=== PATIENT | female | born 1970 | race Caucasian/White ===

== ENCOUNTER 2017-05-22 05:59 | Day surgery (SDC) | payer OTHER ==
[2017-05-20 15:18] LABS: Albumin 3.3 g/dL (3.4-5.0); BUN/Creatinine Ratio 18.6; Calcium 9.2 mg/dL (8.5-10.1); Potassium 3.9 mmol/L (3.5-5.1)
[2017-05-20 15:20] LABS: Bilirubin, Total 0.1 mg/dL (0.2-1.0); Total Protein 7.8 g/dL (6.4-8.2)
[2017-05-20 15:26] LABS: Prothrombin Time 10.9 sec (9.37-12.3)
[2017-05-20 15:30] LABS: Basophils # (auto) 0.1 uL; Basophils % (auto) 0.7 % (0.0-2.0); Eosinophils # (auto) 0.2 uL; Eosinophils % (auto) 2.9 % (0.0-7.0); Hematocrit 44.5 % (36.0-46.0); Hemoglobin 14.6 g/dL (12.2-16.2); Lymphocytes # (auto) 1.7 uL; Lymphocytes % (auto) 19.4 % (10.0-50.0); Mean Corpuscular Hemoglobin 29.6 pg (28.0-32.0); Mean Corpuscular Hgb Conc. 32.9 g/dL (32.0-36.0); Mean Corpuscular Volume 90.1 fL (80.0-100.0); Monocytes # (auto) 0.7 uL; Monocytes % (auto) 7.7 % (0.0-12.0); Neutrophils # (auto) 5.9 uL; Neutrophils % (auto) 69.3 % (37.0-80.0); Nucleated Red Blood Cells % 0.1 %; Platelet Count (auto) 291 10^3/uL (140-450); Red Blood Cells 4.94 10^6/uL (4.0-5.20); Red Cell Distribution Width 15.5 % (11.8-14.3); White Blood Cell 8.5 10^3/uL (4.4-10.8)
[~2017-05-22] VITALS: Ht 167.6 cm; Wt 84.8 kg
[~2017-05-22 05:59] MED LIST: BUPRTAB3 PO; CELE200C PO; DIAZ10TA PO; FAM20T PO; GABA300C PO; LEVO25TA6 PO; OMEG1CAP31 PO; OMEP20CA74 PO; ZOLP10TA PO
[2017-05-22] MEDS ORDERED: ceFAZolin 1GM VL ONE (06:35)
[2017-05-22] MEDS ORDERED: LIDOCAINE W/ EPINEPHRINE 1 % INJ 30ML ONE ×2 (06:35→06:55)
[2017-05-22] MEDS ORDERED: BUPIVACAINE 0.5% P/F INJ 10 ML VIAL ONE (06:35)
[2017-05-22] MEDS ORDERED: BACITRACIN INJ 50000 UNIT VIAL ONE (06:35)
[2017-05-22] MEDS ORDERED: VANCOMYCIN HCL 1000 MG VL ONE (06:39)
[2017-05-22] MEDS ORDERED: CLINDAMYCIN 600MG IV 50 ML IV ONE (06:45)
[2017-05-22] MEDS ORDERED: BUPIVACAINE W/ EPINEPH 0.25% INJ 50ML MDV ONE (06:51)
[2017-05-22] MEDS ORDERED: MORPHINE SULFATE ONE (07:05)
[2017-05-22] MEDS ORDERED: MIDAZOLAM HCL 1MG/1ML-2 ML VIAL ONE ×2 (07:24→08:45)
[2017-05-22] MEDS ORDERED: PROPOFOL 10 MG/ML 20 ML IV ONE ×2 (07:31→08:45)
[2017-05-22] MEDS ORDERED: fentaNYL CITRATE 100 MCG/2 ML VL IV PRN (08:00)
[2017-05-22] MEDS ORDERED: ONDANSETRON HCL 4 MG/2 ML VIAL IV ONE (08:00)
[2017-05-22] MEDS ORDERED: ROCURONIUM 10MG/ML 10ML VIAL IV ONE (08:45)
[2017-05-22] MEDS ORDERED: METOCLOPRAMIDE HCL 5MG/ml INJ 2ml VIAL ONE (08:45)
[2017-05-22] MEDS ORDERED: NEOSTIGMINE 1 MG/ML INJ (10mg/10ML VIAL) ONE (08:45)
[2017-05-22] MEDS ORDERED: KETOROLAC TROMETH 60MG/2ML VIAL IM ONE (08:45)
[2017-05-22] MEDS ORDERED: fentaNYL CITRATE 100 MCG/2 ML VL ONE (08:45)
[2017-05-22] MEDS ORDERED: SODIUM CHLORIDE LOCK 20 ML ONE (08:45)
[2017-05-22] MEDS ORDERED: fentaNYL CITRATE 0 ML ONE (08:45)
[2017-05-22] MEDS ORDERED: MEPERIDINE HCL (50 MG/ML) 1 ML VIAL ONE (08:45)
[2017-05-22] MEDS ORDERED: GLYCOPYRROLATE 0.2 MG/ML 1ML VIAL ONE (08:45)
[2017-05-22 08:55] VITALS: BP 136/92
== END 2017-05-22 09:05 | disposition home or self-care (01) ==
LOC: SUR 05:59
PROVIDERS: ATTEND Anesthesiology Pain Medicine
DX: M96.1 Postlaminectomy syndrome, not elsewhere classified (principal); T85.615D Breakdown (mechanical) of other nervous system device, implant or graft, subsequent encounter; S24.109S Unspecified injury at unspecified level of thoracic spinal cord, sequela; D69.6 Thrombocytopenia, unspecified; J45.909 Unspecified asthma, uncomplicated; R56.9 Unspecified convulsions; G83.9 Paralytic syndrome, unspecified; Z88.0 Allergy status to penicillin; E66.01 Morbid (severe) obesity due to excess calories; Z68.35 Body mass index [BMI] 35.0-35.9, adult; K21.9 Gastro-esophageal reflux disease without esophagitis; F41.9 Anxiety disorder, unspecified; F32.9 Major depressive disorder, single episode, unspecified; Z90.49 Acquired absence of other specified parts of digestive tract
CPT/HCPCS: 36415; 62362; 62370; 80053; 84702; 85025; 85610; 85730; C1772; J1885; J2001; J2250; J2704; J2765; J3370; J3490; J0690

== ENCOUNTER 2023-12-23 06:05 | Day surgery (SDC) | payer OTHER, MEDICAID ==
[~2023-12-23] VITALS: Ht 167.6 cm; Wt 72.6 kg
[~2023-12-23 06:05] MED LIST changes: +BREX1TAB4 PO; +CLON0.1T PO; -DIAZ10TA PO; -FAM20T PO; +FAMO20TA10 PO; +KETO2SHA5 EX; +OMEG-28 PO; -OMEG1CAP31 PO; +QUET50TA PO
[2023-12-23] MEDS ORDERED: VANCOMYCIN HCL 1000 MG VL ONE (07:01)
[2023-12-23] MEDS ORDERED: CLINDAMYCIN 600MG IV 50 ML IV ONE (07:10)
[2023-12-23] MEDS ORDERED: fentaNYL CITRATE 100 MCG/2 ML VL ONE (07:14)
[2023-12-23] MEDS ORDERED: ePHEDrine SULFATE 50 MG/ML AMP ONE (07:40)
[2023-12-23] MEDS ORDERED: ONDANSETRON HCL 4 MG/2 ML VIAL ONE (07:44)
[2023-12-23] MEDS ORDERED: DexAMETHasone SOD PHOS 10MG/1ML VIAL INJ ONE (07:44)
[2023-12-23] MEDS ORDERED: PROPOFOL 10 MG/ML 20 ML IV ONE (07:46)
[2023-12-23] MEDS: LIDOCAINE W/ EPINEPHRINE 1% 20ML VIAL ONE (07:47)
[2023-12-23] MEDS: BUPIVACAINE W/ EPINEPH 0.5% INJ 50ML MDV IJ ONE (07:47)
[2023-12-23] MEDS: MORPHINE SULF PF 5 MG/10 ML VIAL ONE (07:47)
[2023-12-23 08:25] VITALS: TEMP 97.2
[2023-12-23] MEDS ORDERED: MEPERIDINE HCL (25 MG/ML) 1ML VIAL IV PRN (08:45)
[2023-12-23] MEDS ORDERED: ONDANSETRON HCL 4 MG/2 ML VIAL IV ONE (08:45)
[2023-12-23] MEDS ORDERED: HYDROmorphone HCL 2 MG/ML VL/or syr IV PRN (08:45)
[2023-12-23 08:55] VITALS: BP 117/57; PULSE 81; RESP 11; O2SAT 92
== END 2023-12-23 09:20 | disposition home or self-care (01) ==
LOC: SUR 06:05
PROVIDERS: ATTEND Anesthesiology Pain Medicine
DX: Z45.49 Encounter for adjustment and management of other implanted nervous system device (principal); M96.1 Postlaminectomy syndrome, not elsewhere classified; G89.4 Chronic pain syndrome; I10 Essential (primary) hypertension; E11.9 Type 2 diabetes mellitus without complications; J45.909 Unspecified asthma, uncomplicated; E07.9 Disorder of thyroid, unspecified; E03.9 Hypothyroidism, unspecified; K44.9 Diaphragmatic hernia without obstruction or gangrene; F41.8 Other specified anxiety disorders; F43.10 Post-traumatic stress disorder, unspecified; E66.9 Obesity, unspecified; Z68.25 Body mass index [BMI] 25.0-25.9, adult; Z79.890 Hormone replacement therapy; Z79.899 Other long term (current) drug therapy; Z86.2 Personal history of diseases of the blood and blood-forming organs and certain disorders involving the immune mechanism; Z86.73 Personal history of transient ischemic attack (TIA), and cerebral infarction without residual deficits; Z98.890 Other specified postprocedural states; Z87.891 Personal history of nicotine dependence; Z88.0 Allergy status to penicillin
CPT/HCPCS: 62362; 62369; C1772; J1100; J2270; J2405; J2704; J3010; J3370; J3490

== ENCOUNTER 2024-01-25 13:42 | Inpatient (IN) | payer OTHER, MEDICAID ==
[2024-01-25] VITALS (7 sets, daily range): BP systolic 116; BP diastolic 77; PULSE 95–108; RESP 16–24; TEMP 98.6; O2SAT 93–98
[~2024-01-25] VITALS: Ht 167.6 cm; Wt 100.1 kg
[2024-01-25] MEDS: methylPREDNISolone SOD SUCC 125 MG/2 ML VL IV ONE (14:38)
[2024-01-25] MEDS: IPRATROPIUM BROM 0.5 MG/2.5ML INH SOL NEB ONE (14:43)
[2024-01-25] MEDS: ALBUTEROL SULF 2.5 MG/0.5ML(0.5%) NEB SOLN NEB ONE (14:43)
[2024-01-25 15:15] LABS: Hematocrit 38.5 % (36.0-46.0); Hemoglobin 12.7 g/dL (12.2-16.2); Mean Corpuscular Hemoglobin 32.1 pg (28.0-32.0); Red Blood Cells 3.97 10^6/uL (4.0-5.20); Red Cell Distribution Width 15.7 % (11.8-14.3); White Blood Cell 11.3 10^3/uL (4.4-10.8)
[2024-01-25 15:17] LABS: Basophils % (manual) 0 (0.0-2.0); Blast Cells 0; Metamyelocytes % 0; Myelocytes % 0; Promyelocytes % 0; Reactive Lymphocytes 0
[2024-01-25 15:24] LABS: Chloride 97 mmol/L (98-107); Potassium 3.7 mmol/L (3.5-5.1); Sodium 132 mmol/L (136-145)
[2024-01-25] MEDS: levoFLOXacin 500MG 100 ML IV ONE (15:24)
[2024-01-25 15:25] LABS: Anion Gap 8 (5-15); Anisocytosis Slight; Band Neutrophils % (manual) 9; Calcium 9.5 mg/dL (8.7-10.4); Carbon Dioxide 27 mmol/L (20-30); Eosinophils % (manual) 1 (0-7); Lymphocytes % (manual) 6 (10.0-50.0); Monocytes % (manual) 6 (0-12); Platelet Estimate Decreased
[2024-01-25 15:30] LABS: BUN/Creatinine Ratio 17.6 (10.0-20.0); Blood Urea Nitrogen 18 mg/dL (9-23)
[2024-01-25 16:08] LABS: Glucose 483 mg/dL (74-106)
[2024-01-25 16:14] LABS: Urine Bacteria FEW /hpf (None Seen); Urine Blood 1+ /uL (Negative); Urine Clarity Ex.Turbid (Clear); Urine Color Light-Orange (Yellow); Urine Mucus FEW (None Seen); Urine Protein, UAD 1+ (Negative); Urine Specific Gravity 1.024 (1.001-1.035); Urine Urobilinogen Normal (Negative); Urine WBC 866 /hpf (0 - 5); Urine WBC Clumps PRESENT /hpf (None Seen); Urine pH 7.5 (5.0-9.0)
[2024-01-25] MEDS: IOHEXOL 350 MG/ML 100ML IJ ONE (16:19)
[2024-01-25] MEDS: InsuLIN REG 1unit/0.01ml Soln (100units/ml) IV ONE (16:39)
[2024-01-25] MEDS: SODIUM CHLORIDE 0.9% 1,000 ML IV ONE (16:41)
[2024-01-25] MEDS ORDERED: DOXYCYCLINE 100MG/250ML 250 ML IV SCH (17:00)
[2024-01-25] MEDS ORDERED: DEXTROSE (50%) 50ML SYRG IV PRN (17:00)
[2024-01-25] MEDS ORDERED: VANCOMYCIN PER PHARMACY 0 MG IV SCH (17:00)
[2024-01-25] MEDS: SODIUM CHLORIDE 0.9% 1,000 ML IV SCH (17:00)
[2024-01-25] MEDS: ACCU-CHEK COMFORT CURVE STRIP VI SCH (17:00)
[2024-01-25] MEDS ORDERED: MORPHINE SULFATE INJ 2 MG/ml SYRG IV PRN ×3 (17:00)
[2024-01-25] MEDS ORDERED: NITROGLYCERIN 0.4 MG SL TAB SL PRN (17:00)
[2024-01-25] MEDS: IPRATROPIUM BROM 0.5 MG/2.5ML INH SOL NEB SCH (17:19)
[2024-01-25] MEDS: ALBUTEROL SULF 2.5 MG/0.5ML(0.5%) NEB SOLN NEB SCH (17:19)
[2024-01-25] MEDS: InsuLIN REG 1unit/0.01ml Soln (100units/ml) SC SCH ×2 (17:42→22:36)
[2024-01-25 18:18] LABS: Base Excess -1.1 mmol/L (-2.0-2.0)
[2024-01-25] MEDS: VANCOMYCIN 1GM/200ML 200 ML IV ONE (18:21)
[2024-01-25] MEDS: FUROSEMIDE 20 MG/2 ML VIAL IV SCH (18:22)
[2024-01-25] MEDS: QUEtiapine FUMARATE 25 MG TAB PO SCH (18:22)
[2024-01-25] MEDS: BUDESONIDE (INHALATION) 0.5 MG/2 ML NEB NEB SCH (21:23)
[2024-01-25] MEDS ORDERED: GABAPENTIN 300 MG CAP PO SCH (22:00)
[2024-01-25] MEDS: POTASSIUM EFFERVESENT TAB 25 MEQ PO SCH (22:35)
[2024-01-25] MEDS: GABAPENTIN 100 MG CAP PO SCH (23:03)
[2024-01-26] VITALS (23 sets, daily range): BP systolic 115–144; BP diastolic 61–101; PULSE 92–126; RESP 13–23; TEMP 97.3–99.1; O2SAT 90–98
[2024-01-26] MEDS ORDERED: DEXTROSE (50%) 50ML SYRG IV PRN (01:30)
[2024-01-26] MEDS: ACCU-CHEK COMFORT CURVE STRIP VI SCH (03:06)
[2024-01-26] MEDS: InsuLIN REG 1unit/0.01ml Soln (100units/ml) SC SCH (03:23)
[2024-01-26] MEDS: LEVOTHYROXINE SODIUM 25 MCG TAB PO SCH (06:33)
[2024-01-26 07:37] LABS: Basophils # (auto) 0.1 10 ^3/uL (0-0.2); Basophils % (auto) 0.4 % (0.0-2.0); Eosinophils # (auto) 0.2 10 ^3/uL (0-0.8); Eosinophils % (auto) 1.3 % (0.0-7.0); Hematocrit 39.1 % (36.0-46.0); Hemoglobin 12.8 g/dL (12.2-16.2); Lymphocytes % (auto) 5.8 % (10.0-50.0); Mean Corpuscular Hgb Conc. 32.7 g/dL (32.0-36.0); Mean Corpuscular Volume 94.8 fL (80.0-100.0); Monocytes # (auto) 1.2 10 ^3/uL (0-1.3); Monocytes % (auto) 7.3 % (0.0-12.0); Neutrophils # (auto) 14.1 10 ^3/uL (1.6-8.6); Neutrophils % (auto) 85.2 % (37.0-80.0); Nucleated Red Blood Cells % 0.1 %; Red Blood Cells 4.12 10^6/uL (4.0-5.20); Red Cell Distribution Width 15.2 % (11.8-14.3); White Blood Cell 16.5 10^3/uL (4.4-10.8)
[2024-01-26 07:50] LABS: Base Excess 2.8 mmol/L (-2.0-2.0)
[2024-01-26 07:55] LABS: Chloride 99 mmol/L (98-107); Potassium 3.3 mmol/L (3.5-5.1); Sodium 135 mmol/L (136-145)
[2024-01-26 07:56] LABS: Anion Gap 7 (5-15); Carbon Dioxide 29 mmol/L (20-30)
[2024-01-26 07:57] LABS: Calcium 9.4 mg/dL (8.5-10.1)
[2024-01-26 08:01] LABS: Glucose 317 mg/dL (74-106); Triglycerides 534 mg/dL (< 150)
[2024-01-26 08:02] LABS: BUN/Creatinine Ratio 25.4 (10.0-20.0); Blood Urea Nitrogen 16 mg/dL (9-23); Magnesium 1.7 mg/dL (1.6-2.6)
[2024-01-26 08:04] LABS: Cholesterol 212 mg/dL (< 200)
[2024-01-26 08:50] LABS: HDL Cholesterol 8 mg/dL (40-59)
[2024-01-26] MEDS: BREXPIPRAZOLE 2 MG PO SCH (10:00)
[2024-01-26] MEDS: BUPROPION HCL 300 MG PO SCH (10:00)
[2024-01-26] MEDS: levoFLOXacin 500MG 100 ML IV SCH (11:03)
[2024-01-26] MEDS: ENOXAPARIN SOD 40 MG/0.4 ML SYRINGE SC SCH (11:04)
[2024-01-26] MEDS: FAMOTIDINE 20 MG TAB PO SCH (11:04)
[2024-01-26] MEDS: VANCOMYCIN 1GM/200ML 200 ML IV SCH (12:41)
[2024-01-26] MEDS: INSULIN LANTUS (GLARGINE) 1 /0.01ml (100units/ml) SC SCH (21:11)
[2024-01-26 22:07] LABS: COVID19 ANTIGEN SOFIA FIA NEGATIVE (NEGATIVE)
[2024-01-27] VITALS (15 sets, daily range): BP systolic 119–145; BP diastolic 60–89; PULSE 109–125; RESP 14–26; TEMP 97.4–99.6; O2SAT 88–99
[2024-01-27] MEDS: ONDANSETRON HCL 4 MG/2 ML VIAL IV PRN (04:48)
[2024-01-27 06:10] LABS: Hematocrit 40.6 % (36.0-46.0); Hemoglobin 13.7 g/dL (12.2-16.2); Mean Corpuscular Hgb Conc. 33.8 g/dL (32.0-36.0); Mean Corpuscular Volume 94.7 fL (80.0-100.0); Red Blood Cells 4.29 10^6/uL (4.0-5.20); Red Cell Distribution Width 15.5 % (11.8-14.3); White Blood Cell 9.9 10^3/uL (4.4-10.8)
[2024-01-27 06:32] LABS: Band Neutrophils % (manual) 0; Basophils % (manual) 0 (0.0-2.0); Blast Cells 0; Eosinophils % (manual) 0 (0-7); Metamyelocytes % 0; Myelocytes % 0; Promyelocytes % 0; Reactive Lymphocytes 0
[2024-01-27 06:33] LABS: Alanine Aminotransferase 40 U/L (7-40); Albumin 3.4 g/dL (3.2-4.8); Alkaline Phosphatase 209 U/L (46-116); Anion Gap 9 (5-15); Aspartate Aminotransferase 56 U/L (13-40); BUN/Creatinine Ratio 15.1 (10.0-20.0); Bilirubin, Total 0.6 mg/dL (0.2-1.0); Blood Urea Nitrogen 8 mg/dL (9-23); Calcium 9.1 mg/dL (8.7-10.4); Carbon Dioxide 28 mmol/L (20-30); Chloride 98 mmol/L (98-107); Glucose 207 mg/dL (74-106); Potassium 3.2 mmol/L (3.5-5.1); Sodium 135 mmol/L (136-145); Total Protein 6.4 g/dL (5.7-8.2)
[2024-01-27 07:37] LABS: Lymphocytes % (manual) 20 (10.0-50.0); Monocytes % (manual) 15 (0-12); Platelet Estimate Adequate
[2024-01-27] MEDS: VANCOMYCIN 1GM/200ML 200 ML IV SCH (20:38)
[2024-01-27] MEDS: POTASSIUM EFFERVESENT TAB 25 MEQ PO SCH (20:39)
[2024-01-28] VITALS (28 sets, daily range): BP systolic 114–160; BP diastolic 67–98; PULSE 101–129; RESP 16–27; TEMP 97.9–100.6; O2SAT 92–100
[2024-01-28 07:01] LABS: Anion Gap 10 (5-15); Carbon Dioxide 30 mmol/L (20-30); Chloride 96 mmol/L (98-107); Potassium 3.3 mmol/L (3.5-5.1); Sodium 136 mmol/L (136-145)
[2024-01-28 07:07] LABS: BUN/Creatinine Ratio 20.5 (10.0-20.0); Blood Urea Nitrogen 9 mg/dL (9-23); Glucose 188 mg/dL (74-106)
[2024-01-28 07:19] LABS: Hematocrit 39.7 % (36.0-46.0); Hemoglobin 13.2 g/dL (12.2-16.2); Mean Corpuscular Hemoglobin 31.7 pg (28.0-32.0); Mean Corpuscular Hgb Conc. 33.3 g/dL (32.0-36.0); Mean Corpuscular Volume 95.4 fL (80.0-100.0); Red Blood Cells 4.16 10^6/uL (4.0-5.20); Red Cell Distribution Width 15.6 % (11.8-14.3); White Blood Cell 11.2 10^3/uL (4.4-10.8)
[2024-01-28 07:25] LABS: Basophils % (manual) 0 (0.0-2.0); Blast Cells 0; Metamyelocytes % 0; Myelocytes % 0; Promyelocytes % 0
[2024-01-28 08:26] LABS: Band Neutrophils % (manual) 5; Eosinophils % (manual) 2 (0-7); Lymphocytes % (manual) 23 (10.0-50.0); Monocytes % (manual) 6 (0-12); Platelet Estimate Adequate; Reactive Lymphocytes 2
[2024-01-28] MEDS: MAGNESIUM SULFATE 1GM/100ML 100 ML IV SCH (16:25)
[2024-01-28] MEDS: POTASSIUM EFFERVESENT TAB 25 MEQ PO ONE (16:26)
[2024-01-28] MEDS: Juven Orange Powder PACKET 27.5gm PO SCH (18:22)
[2024-01-28] MEDS: ALBUTEROL SULF 2.5 MG/0.5ML(0.5%) NEB SOLN NEB SCH (21:48)
[2024-01-28] MEDS: IPRATROPIUM BROM 0.5 MG/2.5ML INH SOL NEB SCH (21:48)
[2024-01-28] MEDS ORDERED: ALBUTEROL SULF 2.5 MG/0.5ML(0.5%) NEB SOLN NEB SCH (22:00)
[2024-01-28] MEDS: INSULIN LANTUS (GLARGINE) 1 /0.01ml (100units/ml) SC SCH (23:20)
[2024-01-29] VITALS (22 sets, daily range): BP systolic 134–145; BP diastolic 79–94; PULSE 100–121; RESP 14–22; TEMP 97.7–98.7; O2SAT 96–100
[2024-01-29] MEDS: METOCLOPRAMIDE HCL 5MG/ml INJ 2ml VIAL IV PRN (00:44)
[2024-01-29 05:42] LABS: Hematocrit 43.1 % (36.0-46.0); Hemoglobin 14.5 g/dL (12.2-16.2); Mean Corpuscular Hemoglobin 31.7 pg (28.0-32.0); Mean Corpuscular Hgb Conc. 33.5 g/dL (32.0-36.0); Mean Corpuscular Volume 94.7 fL (80.0-100.0); Red Blood Cells 4.56 10^6/uL (4.0-5.20); Red Cell Distribution Width 15.6 % (11.8-14.3)
[2024-01-29 05:49] LABS: Chloride 95 mmol/L (98-107); Potassium 3.9 mmol/L (3.5-5.1); Sodium 134 mmol/L (136-145)
[2024-01-29 05:50] LABS: Anion Gap 6 (5-15); Calcium 9.5 mg/dL (8.5-10.1); Carbon Dioxide 33 mmol/L (20-30)
[2024-01-29 05:54] LABS: Basophils % (manual) 0 (0.0-2.0); Blast Cells 0; Myelocytes % 0; Promyelocytes % 0; Reactive Lymphocytes 0
[2024-01-29 05:55] LABS: Blood Urea Nitrogen 13 mg/dL (9-23); Glucose 229 mg/dL (74-106)
[2024-01-29 10:36] LABS: Band Neutrophils % (manual) 10; Eosinophils % (manual) 3 (0-7); Lymphocytes % (manual) 18 (10.0-50.0); Metamyelocytes % 2; Monocytes % (manual) 5 (0-12); Platelet Estimate Adequate
[2024-01-29] MEDS: VANCOMYCIN 1GM/200ML 200 ML IV SCH (12:13)
[2024-01-29] MEDS: INSULIN LANTUS (GLARGINE) 1 /0.01ml (100units/ml) SC SCH (21:34)
[2024-01-30] VITALS (11 sets, daily range): BP systolic 121–138; BP diastolic 73–84; PULSE 111–125; RESP 18–20; TEMP 97.4–98.7; O2SAT 88–100
[2024-01-30 06:50] LABS: Chloride 94 mmol/L (98-107); Potassium 4.2 mmol/L (3.5-5.1); Sodium 136 mmol/L (136-145)
[2024-01-30 06:51] LABS: Anion Gap 11 (5-15); Calcium 10.2 mg/dL (8.7-10.4); Carbon Dioxide 31 mmol/L (20-30)
[2024-01-30 06:56] LABS: BUN/Creatinine Ratio 22.8 (10.0-20.0); Blood Urea Nitrogen 13 mg/dL (9-23); Glucose 216 mg/dL (74-106)
[2024-01-30] MEDS ORDERED: NITR-52 PO (09:10)
[2024-01-31] MEDS ORDERED: DOXY-448 PO (10:42)
== END 2024-01-30 18:50 | disposition home or self-care (01) | DRG 177 ==
LOC: ER 13:47 → TELE 16:52 → DOU IN ICU 01-26 04:07 → TELE-CENTR 01-28 15:20
PROVIDERS: ADMIT Hospitalist; ATTEND Hospitalist
PROC: 5A09357 Assistance with Respiratory Ventilation, Less than 24 Consecutive Hours, Continuous Positive Airway Pressure (ICD-10-PCS; principal; 2024-01-27)
PROC: 5A09357 Assistance with Respiratory Ventilation, Less than 24 Consecutive Hours, Continuous Positive Airway Pressure (ICD-10-PCS; 2024-01-28)
PROC: 5A09357 Assistance with Respiratory Ventilation, Less than 24 Consecutive Hours, Continuous Positive Airway Pressure (ICD-10-PCS; 2024-01-29)
DX: J15.69 Pneumonia due to other Gram-negative bacteria (principal); J96.01 Acute respiratory failure with hypoxia; N39.0 Urinary tract infection, site not specified; G82.20 Paraplegia, unspecified; I24.89 Other forms of acute ischemic heart disease; E11.9 Type 2 diabetes mellitus without complications; J15.9 Unspecified bacterial pneumonia; J45.909 Unspecified asthma, uncomplicated; M79.7 Fibromyalgia; Z20.822 Contact with and (suspected) exposure to COVID-19; F32.A Depression, unspecified; E66.9 Obesity, unspecified; G89.29 Other chronic pain; I10 Essential (primary) hypertension; Z79.84 Long term (current) use of oral hypoglycemic drugs; Z88.0 Allergy status to penicillin; Z68.35 Body mass index [BMI] 35.0-35.9, adult
CPT/HCPCS: 36415; 36600; 71045; 71275; 80048; 80053; 80061; 80202; 81001; 82805; 82962; 83036; 83605; 83735; 84484; 85007; 85025; 85027; 85379; 87040; 87426; 93306; 93970; 94640; 94660; 96365; 96375; 97110; 97163; 97530; G0378; J1815; J1956; J2405